=== PATIENT | female | born 1955 | race Caucasian/White ===

== ENCOUNTER → 2017-08-03 | Outpatient (CLI) | payer OTHER ==
--- NOTE | 2017-08-03 16:20 | Diagnostic Imaging Report ---
#[id number] - USBRELIMLT ULTRASOUND OF THE LEFT BREAST : 08/03/2017 Comparison is made to exam dated: 08/03/2017 mammogram - [facility]. Color flow and real-time ultrasound were performed on the left breast in the upper-inner aspect. -At 10 o'clock 1 cm from the nipple is a 5 x 3 x 5 mm benign cyst. IMPRESSION: BENIGN There is no sonographic evidence of malignancy. A 1 year screening mammogram is recommended. Javier Borges Jr., D.O. cw/:08/03/2017 15:11:53 Railroad Wheels And Axle Inspector: CHARLIE MENCHACA, [facility] letter sent: Normal Exam Ultrasound BI-RADS: 2 Benign
--- NOTE | 2017-08-03 16:20 | Diagnostic Imaging Report ---
#[id number] - MGDXLT #UNILATERAL LEFT DIGITAL DIAGNOSTIC MAMMOGRAM WITH SPOT COMPRESSION: 08/03/2017 Comparison is made to exams dated: 06/21/2017 mammogram - [facility], 06/07/2013 mammogram and 05/24/2013 mammogram - [facility]. There are scattered fibroglandular elements in the left breast. There is a small nodule in the left breast at 10 o'clock anterior depth. No other significant masses or calcifications are seen in the breast. IMPRESSION: INCOMPLETE: NEEDS ADDITIONAL IMAGING EVALUATION The nodule in the left breast needs additional evaluation-ultrasound will be performed today following this examination. Javier Borges Jr., D.O. cw/:08/03/2017 15:14:14 Packing And Final Assembly Supervisor: Yuli MENCHACA(Adeline)(M), [facility] letter sent: Additional Imaging Needed Mammogram BI-RADS: 0 Indeterminate
== END ==
LOC: MAMMO 12:50
PROVIDERS: ATTEND Obstetrics & Gynecology
DX: N64.59 Other signs and symptoms in breast (principal)
CPT/HCPCS: 76642; G0206

== ENCOUNTER → 2019-07-09 | Outpatient (CLI) | payer OTHER ==
--- NOTE | 2019-07-19 10:20 | Diagnostic Imaging Report ---
#[id number] - MGSCRBIL #BILATERAL DIGITAL SCREENING MAMMOGRAM WITH CAD: 07/09/2019 CLINICAL: Routine screening. Comparison is made to exams dated: 08/03/2017 mammogram and 06/21/2017 mammogram - [facility]. Current study contains 8 films. There are scattered fibroglandular elements in both breasts. Current study was also evaluated with a Computer Aided Detection (CAD) system. Bilateral retropectoral breast implants are intact. Benign appearing calcifications are noted bilaterally. No significant masses, calcifications, or other findings are seen in either breast. IMPRESSION: BENIGN There is no mammographic evidence of malignancy. A 1 year screening mammogram is recommended. The patient will be notified by letter of the results. SANTINO MORFIN M.D. ct/penrad:07/18/2019 17:16:14 Equity Research Analyst: Yuli TEIXEIRA)(Fahad), [facility] letter sent: Normal Exam Mammogram BI-RADS: 2 Benign
== END ==
LOC: MAMMO 14:56
PROVIDERS: ATTEND Obstetrics & Gynecology
DX: Z12.31 Encounter for screening mammogram for malignant neoplasm of breast (principal)
CPT/HCPCS: 77067